=== PATIENT | female | born 1960 | race Hispanic/Latino ===

== ENCOUNTER 2018-07-28 00:32 | Emergency (ER) | payer MEDICARE ==
[~2018-07-28 00:32] MED LIST: ACET-2743 PO; AEC81 PO; CARV6.25 PO; CYCL30DR OU; ERGO500014 PO; FAMO40TA7 PO; FERS325 PO; FLUO-126 PO; FLUT16H NASAL; HYDR200T4 PO; IBUP-2070 PO; ISOS30TA6 PO; LEVO200T10 PO; LEVO75 PO; LOSA1TAB54 PO; NABU750T2 PO; NITR0.4T50 SL; RANO500T3 PO; TOPI50TA24 PO
[2018-07-28 01:05] LABS: APPEARANCE,URINE Clear (CLEAR); BASOPHILS % (AUTO) 0.7 % (0.0-5.0); BILIRUBIN,URINE Negative (NEGATIVE); COLOR,URINE Yellow (YELLOW); EOSINOPHILS % (AUTO) 2.4 % (0.0-8.0); GLUCOSE, URINE (UA) Negative (NEGATIVE); HEMATOCRIT 39.6 % (36-48); KETONES,URINE Negative (NEGATIVE); LEUKOCYTE ESTERASE ,URINE Negative (NEGATIVE); LYMPHOCYTES % (AUTO) 18.8 % (21.0-51.0); MEAN CORPUSCULAR HEMOGLOBIN 30.9 pg (27.0-33.0); MEAN CORPUSCULAR VOLUME 90.7 fL (79-99); MONOCYTES % (AUTO) 5.3 % (3.0-13.0); NEUTROPHILS % (AUTO) 72.8 % (40.0-77.0); NITRATE,URINE Negative (NEGATIVE); OCCULT BLOOD,URINE Negative (NEGATIVE); PH,URINE 5.5 (5.0-8.0); PLATELET COUNT (AUTO) 173 K/uL (130-400); PROTEIN,URINE Negative (NEGATIVE); RED BLOOD CELL COUNT(AUTO) 4.36 MIL/uL (4.00-5.50); RED CELL DISTRIBUTION WIDTH 14.2 % (11.0-15.5); WHITE BLOOD COUNT (AUTO) 6.9 K/uL (4.8-10.8)
[2018-07-28 01:16] LABS: CREATININE 0.6 mg/dL (0.5-1.5); POTASSIUM 4.1 mmol/L (3.5-5.1)
[2018-07-28 01:23] LABS: ALBUMIN 3.7 g/dL (3.5-5.0); BILIRUBIN,TOTAL 0.5 mg/dL (0.2-1.0); TOTAL PROTEIN, SERUM 7.8 g/dL (6.0-8.3)
[2018-07-28 01:30] LABS: CREATINE KINASE, TOTAL 197 U/L (21-232); MYOGLOBIN 50 ng/mL (10-92); TROPONIN I < 0.04 ng/mL (0.00-0.06)
[2018-07-28] MEDS ORDERED: LIDOCAINE HCL 2% VISCOUS 15 ML UDCUP ONE (01:35)
[2018-07-28] MEDS ORDERED: MAGNESIUM HYDROXIDE 30 ML/UDCUP ONE (01:35)
[2018-07-28] MEDS ORDERED: DOCUSATE SODIUM 100 MG CAP PO ONE (02:17)
[2018-07-28] MEDS ORDERED: HYOSCYAMINE SULFATE 0.125 MG TAB.SUBL SL ONE (02:17)
== END 2018-07-28 02:41 | disposition home or self-care (01) ==
LOC: EDH 00:32
DX: K59.00 Constipation, unspecified (principal); R10.13 Epigastric pain; I10 Essential (primary) hypertension; M19.90 Unspecified osteoarthritis, unspecified site; E07.9 Disorder of thyroid, unspecified; Z90.49 Acquired absence of other specified parts of digestive tract; Z98.890 Other specified postprocedural states
CPT/HCPCS: 36415; 71045; 74176; 80053; 81003; 82150; 82550; 83690; 83874; 84484; 85025; 93005

== ENCOUNTER → 2018-08-11 | Outpatient (CLI) | payer MEDICARE | END | disposition home or self-care (01) | LOC: SHCH 12:44 | PROVIDERS: ATTEND Internal Medicine Cardiovascular Disease | DX: I87.2 Venous insufficiency (chronic) (peripheral) (principal); I73.9 Peripheral vascular disease, unspecified | CPT/HCPCS: 93970 ==

== ENCOUNTER → 2019-11-25 | Outpatient (CLI) | payer MEDICARE ==
[~2019-11-25] MED LIST changes: -FLUO-126 PO; +FLUO20CA34 PO
== END | disposition home or self-care (01) ==
LOC: SHCH 12:32
PROVIDERS: ATTEND Internal Medicine Cardiovascular Disease
DX: I20.9 Angina pectoris, unspecified (principal); R06.09 Other forms of dyspnea; R07.9 Chest pain, unspecified; R94.31 Abnormal electrocardiogram [ECG] [EKG]
CPT/HCPCS: 93306; 93356

== ENCOUNTER 2020-10-31 06:46 | Day surgery (SDC) | payer OTHER, MEDICARE ==
[2020-10-29 08:55] VITALS: BP 153/57
[2020-10-29 10:37] LABS: BASOPHILS % (AUTO) 0.5 % (0.0-5.0); EOSINOPHILS % (AUTO) 2.7 % (0.0-8.0); HEMATOCRIT 34.5 % (36-48); LYMPHOCYTES % (AUTO) 27.1 % (21.0-51.0); MEAN CORPUSCULAR HEMOGLOBIN 26.1 pg (27.0-33.0); MEAN CORPUSCULAR HGB CONC 30.7 g/dL (32.0-36.0); MONOCYTES % (AUTO) 5.9 % (3.0-13.0); NEUTROPHILS % (AUTO) 63.6 % (40.0-77.0); PLATELET COUNT (AUTO) 200 K/uL (130-400); RED BLOOD CELL COUNT(AUTO) 4.06 MIL/uL (4.00-5.50); RED CELL DISTRIBUTION WIDTH 14.5 % (11.0-15.5); WHITE BLOOD COUNT (AUTO) 4.4 K/uL (4.8-10.8)
[2020-10-29 10:42] LABS: APPEARANCE,URINE Clear (CLEAR); BILIRUBIN,URINE Negative (NEGATIVE); COLOR,URINE Yellow (YELLOW); GLUCOSE, URINE (UA) Negative (NEGATIVE); KETONES,URINE Negative (NEGATIVE); LEUKOCYTE ESTERASE ,URINE Negative (NEGATIVE); NITRATE,URINE Negative (NEGATIVE); OCCULT BLOOD,URINE Negative (NEGATIVE); PROTEIN,URINE Negative (NEGATIVE)
[2020-10-29 10:46] LABS: CREATININE 0.9 mg/dL (0.5-1.5); POTASSIUM 4.3 mmol/L (3.5-5.1)
[2020-10-29 10:49] LABS: INR 0.96 (0.85-1.15); PROTHROMBIN TIME 10.3 SEC (9.6-11.6)
[2020-10-29 10:50] LABS: PARTIAL THROMBOPLASTIN TIME 26.2 SEC (26.3-35.5)
[2020-10-31] VITALS (10 sets, daily range): BP systolic 105–134; BP diastolic 47–61
[~2020-10-31] VITALS: Ht 152.4 cm; Wt 94.3 kg
[~2020-10-31 06:46] MED LIST changes: +ATOR10TA69 PO; +BACL10TA PO; +CARV12.511 PO; -CARV6.25 PO; +CLON0.5T4 PO; +DICL2100G TP; -ERGO500014 PO; -FAMO40TA7 PO; -FLUO20CA34 PO; +FLUO20CA35 PO; +FURO20TA4 PO; -IBUP-2070 PO; -ISOS30TA6 PO; +ISOS60TA4 PO; +METF-446 PO; +NABU-138 PO; -NABU750T2 PO; +RANO10003 PO; -RANO500T3 PO
[2020-10-31] MEDS ORDERED: SODIUM CHLORIDE 0.9% 1000ML 1,000 ML IV ONE (07:51)
[2020-10-31] MEDS ORDERED: NITROGLYCERIN 2 MG/VIAL VIAL IV ONE (08:26)
[2020-10-31] MEDS ORDERED: IOHEXOL 350 MG/ML 100ML INFUS..BTL IV ONE (08:26)
[2020-10-31] MEDS ORDERED: LIDOCAINE HCL 2% 20ML ONE (08:26)
[2020-10-31] MEDS ORDERED: IOHEXOL-350 50ML VIAL IV ONE ×2 (08:26→09:35)
[2020-10-31] MEDS ORDERED: BIVALIRUDIN 250 MG/VIAL IV ONE (08:26)
[2020-10-31] MEDS ORDERED: MIDAZOLAM HCL 1 MG/ML 2ML VIAL ONE (08:44)
[2020-10-31] MEDS ORDERED: FENTANYL CITRATE PF 50 MCG/1 ML 2ML VIAL ONE (08:44)
[2020-10-31] MEDS ORDERED: GLUCAGON 1MG KIT 1 MG ML IM PRN (10:00)
[2020-10-31] MEDS ORDERED: DEXTROSE 50%-WATER 50 ML DISP.SYRIN IV PRN (10:00)
[2020-10-31] MEDS ORDERED: HYDRALAZINE HCL 20 MG/ML VIAL IV PRN (10:00)
[2020-10-31] MEDS ORDERED: INSULIN HUMULIN R 100 UNIT/ML 3ML SQ SCH (11:30)
== END 2020-10-31 15:00 | disposition home or self-care (01) ==
LOC: DAH 06:46
PROVIDERS: ATTEND Internal Medicine Cardiovascular Disease
DX: I20.9 Angina pectoris, unspecified (principal); I10 Essential (primary) hypertension; E11.9 Type 2 diabetes mellitus without complications; E78.5 Hyperlipidemia, unspecified; M06.9 Rheumatoid arthritis, unspecified; I87.2 Venous insufficiency (chronic) (peripheral); Z79.899 Other long term (current) drug therapy; Z79.84 Long term (current) use of oral hypoglycemic drugs; Z79.82 Long term (current) use of aspirin; Z79.01 Long term (current) use of anticoagulants; Z90.710 Acquired absence of both cervix and uterus; Z90.49 Acquired absence of other specified parts of digestive tract; Z90.89 Acquired absence of other organs; Z98.890 Other specified postprocedural states; Z98.891 History of uterine scar from previous surgery; Z82.49 Family history of ischemic heart disease and other diseases of the circulatory system; Z83.3 Family history of diabetes mellitus
CPT/HCPCS: 36415; 71045; 80048; 81003; 82948 ×2; 85025; 85610; 85730; 93005; 93458; A4215; A4216; A4221; A4222; A4223 ×3; A4606; A4663; C1760; C1894 ×2; J1644; J2250; J3010; J3490 ×2; J7030; Q9965; Q9967 ×2; 99156; 99157; J0583

== ENCOUNTER → 2021-09-23 | Outpatient (CLI) | payer OTHER, MEDICARE ==
[~2021-09-23] MED LIST changes: -FLUO20CA35 PO; +FLUO20CA36 PO; -ISOS60TA4 PO; +ISOS60TA77 PO; -LEVO75 PO; -NABU-138 PO; +NABU-143 PO
== END | disposition home or self-care (01) ==
LOC: RAH 10:06
PROVIDERS: ATTEND Nurse Practitioner Family
DX: M79.642 Pain in left hand (principal); M79.622 Pain in left upper arm
CPT/HCPCS: 73080; 73110; 73130

== ENCOUNTER → 2022-01-06 | Outpatient (CLI) | payer OTHER, MEDICARE | END | disposition home or self-care (01) | LOC: RAH 14:46 | PROVIDERS: ATTEND Internal Medicine | DX: G43.909 Migraine, unspecified, not intractable, without status migrainosus (principal) | CPT/HCPCS: 70450 ==

== ENCOUNTER → 2022-01-22 | Outpatient (CLI) | payer OTHER, MEDICARE | END | disposition home or self-care (01) | LOC: RAH 10:22 | PROVIDERS: ATTEND Internal Medicine | DX: M25.551 Pain in right hip (principal) | CPT/HCPCS: 73502 ==

== ENCOUNTER → 2022-08-13 | Outpatient (CLI) | payer OTHER, MEDICARE | END | disposition home or self-care (01) | LOC: RAH 14:32 | PROVIDERS: ATTEND Internal Medicine Hematology & Oncology | DX: G47.00 Insomnia, unspecified (principal); I82.403 Acute embolism and thrombosis of unspecified deep veins of lower extremity, bilateral; I73.9 Peripheral vascular disease, unspecified; D50.9 Iron deficiency anemia, unspecified; I65.23 Occlusion and stenosis of bilateral carotid arteries; I25.10 Atherosclerotic heart disease of native coronary artery without angina pectoris; M71.22 Synovial cyst of popliteal space [Baker], left knee | CPT/HCPCS: 93925; 93970 ==

== ENCOUNTER → 2022-08-30 | Outpatient (CLI) | payer OTHER, MEDICARE | END | disposition home or self-care (01) | LOC: SHCH 15:11 | PROVIDERS: ATTEND Internal Medicine Cardiovascular Disease | DX: I87.2 Venous insufficiency (chronic) (peripheral) (principal) | CPT/HCPCS: 93970 ==

== ENCOUNTER → 2022-09-04 | Outpatient (CLI) | payer OTHER, MEDICARE | END | disposition home or self-care (01) | LOC: RAH 10:00 | PROVIDERS: ATTEND Internal Medicine | DX: R93.89 Abnormal findings on diagnostic imaging of other specified body structures (principal) | CPT/HCPCS: 71046 ==

== ENCOUNTER 2022-11-25 11:46 | Emergency (ER) | payer OTHER, MEDICARE ==
[~2022-11-25] VITALS: Ht 154.9 cm; Wt 92.1 kg
[~2022-11-25 11:46] MED LIST changes: -BACL10TA PO; +BIMA2.5D4 OP; +CETI10TA57 PO; +CHOL2400 MC; -CLON0.5T4 PO; +CYAN500T9 PO; -FERS325 PO; +FOLI1 PO; -ISOS60TA77 PO; +LEVO50CA4 PO; +METH25VI67 SQ; -NABU-143 PO; +OMEP20TA20 PO; +SUCR1TAB2 PO; +TEMA15CA PO; +TIZA4CAP8 PO; +TRAM50TA4 PO
[2022-11-25 12:48] LABS: BASOPHILS % (AUTO) 0.6 % (0.0-5.0); HEMATOCRIT 40.5 % (36-48); LYMPHOCYTES % (AUTO) 12.8 % (21.0-51.0); MEAN CORPUSCULAR HEMOGLOBIN 31.1 pg (27.0-33.0); MEAN CORPUSCULAR HGB CONC 33.6 g/dL (32.0-36.0); MEAN CORPUSCULAR VOLUME 92.7 fL (79-99); MONOCYTES % (AUTO) 1.6 % (3.0-13.0); NEUTROPHILS % (AUTO) 83.2 % (40.0-77.0); PLATELET COUNT (AUTO) 169 K/uL (130-400); RED BLOOD CELL COUNT(AUTO) 4.37 MIL/uL (4.00-5.50); WHITE BLOOD COUNT (AUTO) 5.1 K/uL (4.8-10.8)
[2022-11-25 12:55] LABS: APPEARANCE,URINE CLEAR (CLEAR); BILIRUBIN,URINE NEGATIVE (NEGATIVE); COLOR,URINE COLORLESS (YELLOW); GLUCOSE, URINE (UA) 30 mg/dL (NEGATIVE); KETONES,URINE NEGATIVE (NEGATIVE); LEUKOCYTE ESTERASE ,URINE NEGATIVE Leu/uL (NEGATIVE); NITRATE,URINE NEGATIVE (NEGATIVE); OCCULT BLOOD,URINE NEGATIVE (NEGATIVE); PROTEIN,URINE NEGATIVE (NEGATIVE); UROBILINOGEN,URINE 0.2 mg/dL (0.2-1.0)
[2022-11-25 13:10] LABS: BACTERIA,URINE RARE /HPF (None Seen); MUCUS,URINE RARE LPF (None Seen); RBC,URINE 0-1 /HPF (0-1); SQUAMOUS EPITHELIAL CELL,UR RARE /HPF (0-2); WBC,URINE 0-1 /HPF (0-1)
[2022-11-25 13:12] LABS: CREATININE 0.5 mg/dL (0.5-1.5); POTASSIUM 3.4 mmol/L (3.5-5.1)
[2022-11-25 13:16] LABS: ALBUMIN 3.9 g/dL (3.5-5.0); TOTAL PROTEIN, SERUM 7.6 g/dL (6.0-8.3)
[2022-11-25 17:03] VITALS: BP 136/76
== END 2022-11-25 18:03 | disposition home or self-care (01) ==
LOC: EDH 11:46
DX: M25.512 Pain in left shoulder (principal); G45.4 Transient global amnesia; E11.9 Type 2 diabetes mellitus without complications; I10 Essential (primary) hypertension; M19.90 Unspecified osteoarthritis, unspecified site; Z79.82 Long term (current) use of aspirin; Z79.899 Other long term (current) drug therapy; Z79.84 Long term (current) use of oral hypoglycemic drugs; Z90.49 Acquired absence of other specified parts of digestive tract; Z98.890 Other specified postprocedural states
CPT/HCPCS: 36415; 70450; 73030; 80053; 81001; 84484; 85025; 93005

== ENCOUNTER → 2023-11-16 | Outpatient (CLI) | payer OTHER, MEDICARE ==
[~2023-11-16] MED LIST changes: -HYDR200T4 PO; +HYDR200T75 PO; +TOPI-97 PO; -TOPI50TA24 PO
== END | disposition home or self-care (01) ==
LOC: RAH 11:43
PROVIDERS: ATTEND Nurse Practitioner Family
DX: R07.81 Pleurodynia (principal); M19.09 Primary osteoarthritis, other specified site; R10.11 Right upper quadrant pain
CPT/HCPCS: 71100

== ENCOUNTER → 2023-11-23 | Outpatient (CLI) | payer OTHER, MEDICARE | END | disposition home or self-care (01) | LOC: RAH 07:51 | PROVIDERS: ATTEND Internal Medicine | DX: K76.0 Fatty (change of) liver, not elsewhere classified (principal); R07.81 Pleurodynia; R10.11 Right upper quadrant pain; Z90.49 Acquired absence of other specified parts of digestive tract | CPT/HCPCS: 76705 ==

== ENCOUNTER → 2023-11-30 | Outpatient (CLI) | payer OTHER, MEDICARE ==
[~2023-11-30] MED LIST changes: +REGADENOSON 0.4 MG/5 ML PF SYG IVP ONE
== END | disposition home or self-care (01) ==
LOC: SHCH 07:40
PROVIDERS: ATTEND Internal Medicine Cardiovascular Disease
DX: I25.119 Atherosclerotic heart disease of native coronary artery with unspecified angina pectoris (principal); R07.9 Chest pain, unspecified
CPT/HCPCS: 78452; 96374; 93017; J2785; A9500 ×2

== ENCOUNTER → 2023-12-01 | Outpatient (CLI) | payer OTHER, MEDICARE ==
[~2023-12-01] MED LIST changes: -REGADENOSON 0.4 MG/5 ML PF SYG IVP ONE
== END | disposition home or self-care (01) ==
LOC: SHCH 08:02
PROVIDERS: ATTEND Internal Medicine Cardiovascular Disease
DX: R07.9 Chest pain, unspecified (principal); I20.9 Angina pectoris, unspecified; E78.5 Hyperlipidemia, unspecified; E11.9 Type 2 diabetes mellitus without complications
CPT/HCPCS: 93306

== ENCOUNTER → 2023-12-28 | Outpatient (CLI) | payer OTHER, MEDICARE | END | disposition home or self-care (01) | LOC: RAH 10:01 | PROVIDERS: ATTEND Internal Medicine | DX: N95.9 Unspecified menopausal and perimenopausal disorder (principal) | CPT/HCPCS: 77080 ==

== ENCOUNTER → 2024-02-16 | Outpatient (CLI) | payer OTHER, MEDICARE | END | disposition home or self-care (01) | LOC: RAH 09:27 | PROVIDERS: ATTEND Internal Medicine | DX: M19.031 Primary osteoarthritis, right wrist (principal); M19.011 Primary osteoarthritis, right shoulder; M47.812 Spondylosis without myelopathy or radiculopathy, cervical region; M48.02 Spinal stenosis, cervical region; M25.511 Pain in right shoulder; M25.531 Pain in right wrist; M54.2 Cervicalgia | CPT/HCPCS: 72040; 73030; 73090; 73100 ==

== ENCOUNTER 2024-09-19 02:16 | Emergency (ER) | payer OTHER, MEDICARE ==
[~2024-09-19] VITALS: Ht 154.9 cm; Wt 93.9 kg
[~2024-09-19 02:16] MED LIST changes: +FLUO-418 PO; -FLUO20CA36 PO
--- NOTE | 2024-09-19 02:51 | ERN ---
ED Note History of Present Illness Stated Complaint: BACK PAIN Chief Complaint: Back Pain-No Injury Time Seen by MD: 02:23 Dictation: This is a 64-year-old female presented to the emergency room with complaints of back pain. She states that the pain is along the spine and she gets some relief with the Tylenol Arthritis. No bladder or bowel incontinence. No history of any falls She has a history of chronic back pain and has had previous sacroiliac joint fusion. This particular back pain is more in the right psoas muscle area which is tender per her description. She also has a another pain that radiates from there like electric shock along the lower aspect towards the gluteal area. At baseline she uses a cane for ambulation. Her main complaint today is worsening pain unable to sleep No fever chills rigors Temperature 97.8 pulse 82 respirations 20 blood pressure 166/89 with a pulse oximetry of 98% Her chronic medical problems include anemia arthritis diabetes mellitus hypertension insomnia and hypothyroidism. Allergies: Coded Allergies: No Known Allergies (Verified Allergy, 05/26/13) Home Meds Active Scripts Tramadol Hcl (Tramadol HCl) 50 Mg Tablet, 50 MG PO QID for pain, #16 TAB 0 Refills Prov:AI MACHUCA MD 09/19/24 Prednisone (Prednisone) 20 Mg Tablet, 1 TAB PO AD for 6 Days, #14 TAB 0 Refills TAKE 1 TAB BY MOUTH THREE TIMES PER DAY X3 DAYS, THEN TAKE 1 TAB BY MOUTH TWICE A DAY X2 DAYS, THEN TAKE 1 TAB BY MOUTH ONCE A DAY X1 DAY. Prov:AI MACHUCA MD 09/19/24 Cyclobenzaprine HCl (Cyclobenzaprine HCl) 10 Mg Tablet, 1 TAB PO HS for muscle spasms for 30 Days, #30 TAB 0 Refills Prov:AI MACHUCA MD 09/19/24 Sucralfate (Sucralfate) 1 Gm Tablet, 1 GM PO DAILY, #30 TAB 0 Refills Prov:LESLY ANDERSON MD 09/29/22 Reported Medications Levothyroxine Sodium (Levothyroxine) 50 Mcg Capsule, 50 MCG PO Q24H, CAP 09/28/22 Folic Acid (Folvite) 1 Mg Tab, 1 MG PO DAILY, TAB 09/28/22 Methotrexate Sodium/Pf (Methotrexate 50 mg/2 ml Vial) 25 Mg/1 Ml Vial, 15 MG SQ QWEEK, VIAL 09/28/22 Cetirizine HCl (Cetirizine HCl) 10 Mg Tablet, 10 MG PO DAILY, TAB 09/28/22 Omeprazole (Omeprazole) 20 Mg Tablet.dr, 20 MG PO DAILY, TAB 09/28/22 Tizanidine HCl (Tizanidine HCl) 4 Mg Capsule, 4 MG PO BID, CAP 09/28/22 Cyanocobalamin (Vitamin B-12) 500 Mcg Tab, 500 MCG PO DAILY, TAB 09/28/22 Tramadol Hcl (Tramadol HCl) 50 Mg Tablet, 50 MG PO Q6HPRN PRN for PAIN, TAB 09/28/22 Bimatoprost (Lumigan) 2.5 Ml Drops, 2.5 ML OP BID, DROP 09/28/22 Temazepam (Temazepam) 15 Mg Capsule, 15 MG PO HS PRN for INSOMNIA, CAP 09/28/22 Cholecalciferol (Vitamin D3) (Vitamin D3) 2,400 Unit/1 Ml Liquid, 2000 UNIT MC DAILY 09/28/22 Atorvastatin Calcium (Atorvastatin Calcium) 10 Mg Tablet, 10 MG PO DAILY, TAB 10/30/20 Ranolazine (Ranexa) 1,000 Mg Tab.er.12h, 1000 MG PO BID, TAB 10/30/20 Furosemide (Furosemide) 20 Mg Tablet, 20 MG PO AD PRN for SWELLING, TAB 10/30/20 Carvedilol (Carvedilol) 12.5 Mg Tablet, 12.5 MG PO BID, TAB 10/30/20 Diclofenac Sodium (Voltaren 1% Gel [2 gm/Dose]) 1 Appl/2 Gm Gel, 1 APPL TP QIDP PRN for PAIN LEVEL 1 TO 5, GEL 10/30/20 Metformin HCl (Metformin HCl) 1,000 Mg Tablet, 1000 MG PO DAILY, TAB 10/30/20 Aspirin (ASPIRIN 81 MG ECTAB) 81 Mg Ectab, 81 MG PO DAILY, TAB.EC 12/15/16 Fluticasone Propionate (Flonase Nasal [place]) 50 Mcg/[place], 1 PUFF NASAL DAILY, #3 12/15/16 Cyclosporine (Restasis) 1 Each Droperette, 2 DROP OU DAILY, #180 12/15/16 Fluoxetine HCl (Fluoxetine HCl) 20 Mg Capsule, 1 CAP PO DAILY, #30 12/15/16 Losartan/Hydrochlorothiazide (Losartan-Hctz 100-25 mg Tab) 1 Each Tablet, 1 TAB PO DAILY, #30 12/15/16 Levothyroxine Sodium (Levothyroxine Sodium) 200 Mcg Tablet, 1 TAB PO DAILY, #90 12/15/16 Hydroxychloroquine Sulfate (Hydroxychloroquine Sulfate) 200 Mg Tablet, 1 TAB PO DAILY, #60 12/15/16 Topiramate (Topiramate) 50 Mg Tablet, 1.5 TAB PO BID, #60 12/15/16 Acetaminophen (Tylenol Extra Strength) 500 Mg Tablet, 2 TAB PO BID PRN for PAIN LEVEL 1 TO 5, #360 12/15/16 Nitroglycerin (Nitroglycerin) 0.4 Mg Tab.subl, 1 TAB SL AD PRN for CHEST PAIN, #25 1 tablet every 5 minutes for 3 doses as needed for chest pain 12/15/16 Past Medical History Past Medical History: Anemia, Angina, Arthritis, Diabetes-Type II, Hypertension Additional Past Medical Hx: INSOMNIA,THYROID Surgical History: Appendectomy, Cholecystectomy, Surgical History Other: TKR (BILATERAL), TSR (BILATERAL), UTERUS AND 1 OVARY REMOVED, LOWER BACK S[place] Family History: CAD, HTN Social History: Negative, Lives with family History: Not Applicable RN Note Reviewed/Agreed w/PFSH: Yes Review of System Dictation Constitutional: Negative for fever,chills, and weight loss Eyes: Negative for injury, pain,redness, and discharge ENT: Negative for injury,pain or swelling Cardiovascular: Negative for chest pain, palpitations, and edema Respiratory: Negative for shortness of breath, cough, and wheezing, Abdomen/GI: Negative for abdominal pain, nausea, vomiting, diarrhea, and constipation Back: Negative for injury reports chronic back pain which has been worse today : Negative for injury, bleeding and discharge MS/Extremity: Negative for injury and deformity Skin: Negative for rash, and discoloration Neuro: Negative for headache, weakness, numbness, tingling, and seizure Psych: Negative for suicide ideation, homicidal ideation, and hallucinations Initial Vital Sign VS Vital Signs Date Time Temp Pulse Resp B/P (MAP) Pulse Ox O2 Delivery O2 Flow Rate FiO2 09/19/24 02:17 97.9 82 20 166/89 98 Room Air 09/19/24 02:38 0 21 Physical Exam Dictation General: awake, alert, NAD Head/Face: Normocephalic, atraumatic Eyes: PERRL, EOMI, vision at baseline ENT: oral cavity clear, TMs clear, no signs of infection Neck: Trachea midline, supple, no nuchal rigidity Cardiovascular: RRR, normal S1/S2, No MRGs, no JVD Respiratory: CTAB, no respiratory distress, No rales or wheezes Abdomen: Soft, non-tender, non-distended, normal bowel sounds, no guarding or rebound. Tenderness in the right flank area and para spinal area. I did not appreciate any obvious erythema bruising hematoma or deformity. Most of the pain and tenderness are with movement of the body Skin: Warm, dry, normal turgor, no rash MS/Extremity: Pulses equal, no cyanosis, neurovascular intact, FROM Neuro: COAx4, GCS 15, strength 5/5, CN 2-12 intact, normal cerebellar exam, normal gait, Psych: Normal behavior, mood, and affect normal Extremities-trace edema without any palpable cords, Homans sign is negative Results (Laboratory/Radiology) Laboratory/Radiology Laboratory Tests Test 09/19/24 02:46 Urine Color LIGHT-YELLOW (YELLOW) Urine Appearance CLEAR (CLEAR) Urine pH 7.0 (5.0-8.0) Urine Specific [place] 1.020 (1.001-1.031) Urine Protein NEGATIVE mg/dL (NEGATIVE) Urine Glucose (UA) NEGATIVE mg/dL (NEGATIVE) Urine Ketones NEGATIVE mg/dL (NEGATIVE) Urine Occult Blood NEGATIVE (NEGATIVE) Urine Nitrate NEGATIVE (NEGATIVE) Urine Bilirubin NEGATIVE mg/dL (NEGATIVE) Urine Urobilinogen 0.2 mg/dL (0.2-1.0) Urine Leukocyte Esterase NEGATIVE Marko/uL Labs Reviewed?: Yes ED Course ED Course Orders Procedure Category Date Status Time Urinalysis Profile LAB 09/19/24 Complete 02:42 Morphine 2mg Syg PHA 09/19/24 Complete (Morphine 2mg Syg) 03:00 Cyclobenzaprine Hcl PHA 09/19/24 Complete (Cyclobenzaprine Hcl 03:00 Methylprednisolone PHA 09/19/24 Complete Succ 125mg (Solu-Medr 03:00 Morphine 2mg Syg PHA 09/19/24 In Process (Morphine 2mg Syg) 04:30 Morphine 2mg Syg PHA 09/19/24 Transmitted (Morphine 2mg Syg) 04:30 Current Medications Medications (Trade) Dose Ordered Sig/Samantha Route PRN Reason Start Time Stop Time Status Last Admin Dose Admin Cyclobenzaprine HCl (Cyclobenzaprine HCl) 5 mg ONCE ONCE PO 09/19/24 03:00 09/19/24 03:01 DC 09/19/24 03:04 Methylprednisolone Sodium Succinate (Solu-medROL 125MG) 60 mg ONCE ONCE IVP 09/19/24 03:00 09/19/24 03:01 DC 09/19/24 03:04 Morphine Sulfate (morPHINE 2MG SYG) 2 mg ONCE ONCE IVP 09/19/24 03:00 09/19/24 03:01 DC 09/19/24 03:04 Morphine Sulfate (morPHINE 2MG SYG) 2 mg ONCE ONCE IVP 09/19/24 04:30 09/19/24 04:31 Vital Signs Date Time Temp Pulse Resp B/P (MAP) Pulse Ox O2 Delivery O2 Flow Rate FiO2 09/19/24 04:08 98.2 88 18 156/65 99 Room Air* 0 21 09/19/24 02:38 98.1 88 18 166/78 99 Room Air* 0 21 09/19/24 02:17 97.9 82 20 166/89 98 Room Air We will perform diagnostic labs, advanced imaging and administer medications according to the patient's complaint. Once the results are available, will review and personally interpreted the labs to rule out any acute life- threatening emergency the trach require immediate intervention and treatment. I will then re-evaluate the patient after treatment and diagnostic exams have return to determine whether the patient requires any further testing, can safely be discharged home or need further admission to hospital for additional treatment and evaluation. Feels much improved with significant resolution of the symptoms on symptomatic management. I had a long discussion with the patient and family member about likely possibilities of pain and long-term strategies for pain control. They verbalized full understanding. I also discussed the uses adverse effects risks and benefits of tramadol although a week opioid and negative consequences including respiratory arrest especially with morbid obesity. They verbalized full understanding Medical Decision Making MDM MDM: Differential diagnosis: Lumbar radiculopathy, psoas muscle spasm, chronic degenerative arthritis Rationale: Tests considered and ordered secondary to shared decision making include: Previous outside records reviewed: Old ER visits. Risk of complication and/or morbidity or mortality of patient management: None Medications-Per medication reconciliation Need for hospitalization: Patient does not meet criteria for hospitalization. Need for emergency major/minor surgery: No There are no social concerns with this patient. Prescription drug management Prescriptions will include symptomatic care Patient's prior external medical records from other ER visits were reviewed by me as indicated. Prior testing and results from previous visits were reviewed. Prior tests were taken into account with medical decision making and resource utilization, independent historian/historians were used to obtain complete medical history. I independently interpreted the test that were performed, results were reviewed by me and considered findings on radiology if ordered. Medical management and examination interpretation discussions were had by me with other qualified healthcare professionals as indicated for the patient's care. Problem List Problem List: (1) Lumbar paraspinal muscle spasm (2) Chronic back pain (3) Lumbar radiculopathy, chronic DX & DISP Disposition: Discharge Departure Impression: Primary Impression: Lumbar paraspinal muscle spasm Additional Impressions: Chronic back pain, Lumbar radiculopathy, chronic Condition: Stable Scripts Tramadol Hcl (Tramadol HCl) 50 Mg Tablet 50 MG PO QID for pain, #16 TAB 0 Refills Prov: AI MACHUCA MD 09/19/24 Prednisone (Prednisone) 20 Mg Tablet 1 TAB PO AD for 6 Days, #14 TAB 0 Refills TAKE 1 TAB BY MOUTH THREE TIMES PER DAY X3 DAYS, THEN TAKE 1 TAB BY MOUTH TWICE A DAY X2 DAYS, THEN TAKE 1 TAB BY MOUTH ONCE A DAY X1 DAY. Prov: AI MACHUCA MD 09/19/24 Cyclobenzaprine HCl (Cyclobenzaprine HCl) 10 Mg Tablet 1 TAB PO HS for muscle spasms for 30 Days, #30 TAB 0 Refills Prov: AI MACHUCA MD 09/19/24 Additional Instructions: Patient and the caregiver have been informed of all the diagnostic tests and the imaging conducted during the today's visit to the emergency room and has verbalized understanding of the results I have personally reviewed and interpreted all diagnostic exams performed here in the ER today as well as the vital signs documented by the nursing staff. The patient is now being discharged to home and should follow up with the primary care physician or the specialist as directed by the ER staff. Follow-up with primary care provider in 1 to 2 days. Take medications as directed here in the emergency room. Okay to continue home medications unless otherwise discussed during your visit in the emergency room today. Return to your nearest emergency room if symptoms worsen or if there is no improvement. Call 911 if you need immediate assistance. Take Tylenol or Motrin [id number] as needed and if no contraindications are present. Increase oral hydration. A wound culture or urine culture was ordered here in the emergency room department please follow-up with primary care provider and advise them to get repeat ports from our facility. If you had any Farhan wrap/splints that were applied here, please do not remove them until you see your primary care or specialty. Referra to neurosurgeon chronic pain management. Referrals: ARASELI ALBERTS MD (PCP) AI MACHUCA MD Sep 19, 2024 02:51
[2024-09-19 03:03] LABS: ADD UA MICROSCOPIC NO; APPEARANCE,URINE CLEAR (CLEAR); BILIRUBIN,URINE NEGATIVE (NEGATIVE); COLOR,URINE LIGHT-YELLOW (YELLOW); GLUCOSE, URINE (UA) NEGATIVE (NEGATIVE); KETONES,URINE NEGATIVE (NEGATIVE); LEUKOCYTE ESTERASE ,URINE NEGATIVE Leu/uL (NEGATIVE); NITRATE,URINE NEGATIVE (NEGATIVE); OCCULT BLOOD,URINE NEGATIVE (NEGATIVE); PROTEIN,URINE NEGATIVE (NEGATIVE); UROBILINOGEN,URINE 0.2 mg/dL (0.2-1.0)
[2024-09-19] MEDS: morPHINE 2 MG SYG IVP ONE ×3 (03:04→04:28)
[2024-09-19] MEDS: CYCLOBENZAPRINE HCL 10 MG TABLET PO ONE (03:04)
[2024-09-19] MEDS: Solu-medROL 125MG VIAL IVP ONE (03:04)
[2024-09-19] MEDS ORDERED: CYCL-309 PO (03:12)
[2024-09-19] MEDS ORDERED: TRAM50TA4 PO (03:12)
[2024-09-19] MEDS ORDERED: PRED20TA3 PO (03:12)
[2024-09-19 04:08] VITALS: BP 156/65; PULSE 88; RESP 18; TEMP 98.2; O2SAT 99
== END 2024-09-19 04:20 | disposition home or self-care (01) ==
LOC: EDH 02:16
DX: M62.830 Muscle spasm of back (principal); G89.29 Other chronic pain; M54.9 Dorsalgia, unspecified; M54.16 Radiculopathy, lumbar region; E11.9 Type 2 diabetes mellitus without complications; I10 Essential (primary) hypertension; Z79.621 Long term (current) use of calcineurin inhibitor; Z79.82 Long term (current) use of aspirin; Z79.84 Long term (current) use of oral hypoglycemic drugs; Z79.890 Hormone replacement therapy; Z79.899 Other long term (current) drug therapy; Z90.49 Acquired absence of other specified parts of digestive tract; Z90.721 Acquired absence of ovaries, unilateral; Z98.890 Other specified postprocedural states
CPT/HCPCS: 99284; 96374; 96375; 81003; 96376; J2270 ×2; J2919

== ENCOUNTER → 2025-05-01 | Outpatient (CLI) | payer OTHER, MEDICAID ==
[~2025-05-01] MED LIST changes: +CYCL-309 PO; -LEVO50CA4 PO; +LEVO50CA5 PO; +PRED20TA3 PO
--- NOTE | 2025-05-02 14:19 | HMCIMG ---
EXAM: MR Lumbar Spine Without Intravenous Contrast. CLINICAL HISTORY: Pain. TECHNIQUE: Magnetic resonance images of the lumbar spine in multiple planes. CONTRAST: None. COMPARISON: None. FINDINGS: For this examination, spinal levels were labeled assuming five non-rib bearing, lumbar-type vertebrae with the inferior labeled L5. No acute fracture. Normal lordotic curvature. Moderate levoscoliosis. Normal vertebral body heights. Normal marrow signal of the vertebrae. Moderate lumbar spondylosis with multilevel marginal osteophytes, facet arthropathy, ligamentum flavum hypertrophy, disc desiccation and degenerative disc space reduction, most pronounced at T12-L1. Type II endplate changes at T12-L1 and L4-L5. Grade I degenerative anterolisthesis of L4 over L5. Conus medullaris terminates at the T12-L1 level. No abnormal epidural masses. The surrounding soft tissues are unremarkable. Individual spinal levels are described as follows: T12-L1: 3 mm diffuse disc bulge. Severe right lateral recess and neural foraminal stenosis. No spinal canal stenosis. Right traversing nerve root impingement. L1-L2: 3 mm diffuse disc bulge. Severe right lateral recess and neural foraminal stenosis. No spinal canal stenosis. Right traversing nerve root impingement. L2-L3: 4 mm diffuse disc bulge. Moderate right and severe left lateral recess and neural foraminal stenosis. Mild spinal canal stenosis. Bilateral traversing nerve root impingement. L3-L4: 4 mm diffuse disc bulge. Bilateral ligamentum flavum and facet hypertrophy. Severe bilateral lateral recess and neural foraminal stenosis. Mild spinal canal stenosis. Bilateral traversing and exiting nerve root impingement. L4-L5: 3 mm diffuse disc bulge. Bilateral ligamentum flavum and facet hypertrophy. Moderate right and severe left lateral recess and neural foraminal stenosis. Severe spinal canal stenosis. Bilateral traversing and left exiting nerve root impingement. L5-S1: 3 mm diffuse disc bulge. Bilateral facet hypertrophy. Moderate bilateral lateral recess and neural foraminal stenosis. Mild spinal canal stenosis. Bilateral traversing and exiting nerve root impingement. IMPRESSION: Moderate lumbar spondylosis with multilevel marginal osteophytes, facet arthropathy, ligamentum flavum hypertrophy, disc desiccation and degenerative disc space reduction, most pronounced at T12-L1. Type II endplate changes at T12-L1 and L4-L5. Grade I degenerative anterolisthesis of L4 over L5. Mild levoscoliosis. 3-4 mm diffuse disc bulges from T12-L1 through L5-S1. Severe right lateral recess and neural foraminal stenosis at T12-L1 and L1-L2 with right traversing nerve root impingement. Moderate right and severe left lateral recess and neural foraminal stenosis at L2-L3 with mild spinal canal stenosis and bilateral traversing nerve root impingement. Severe bilateral lateral recess and neural foraminal stenosis at L3-L4 with mild spinal canal stenosis and bilateral nerve root impingement. Moderate right and severe left lateral recess and neural foraminal stenosis at L4-L5 with severe spinal canal stenosis and bilateral nerve root impingement. Moderate bilateral lateral recess and neural foraminal stenosis at L5-S1 with mild spinal canal stenosis and bilateral nerve root impingement. /Ermine
== END | disposition home or self-care (01) ==
LOC: RAH 14:28
PROVIDERS: ATTEND Internal Medicine
DX: M47.26 Other spondylosis with radiculopathy, lumbar region (principal); M47.818 Spondylosis without myelopathy or radiculopathy, sacral and sacrococcygeal region; M51.16 Intervertebral disc disorders with radiculopathy, lumbar region; M51.34 Other intervertebral disc degeneration, thoracic region; M43.16 Spondylolisthesis, lumbar region; M53.3 Sacrococcygeal disorders, not elsewhere classified; M48.07 Spinal stenosis, lumbosacral region; M48.04 Spinal stenosis, thoracic region; M25.78 Osteophyte, vertebrae; M41.86 Other forms of scoliosis, lumbar region
CPT/HCPCS: 72148

== ENCOUNTER → 2025-06-08 | Outpatient (CLI) | payer OTHER, MEDICAID ==
[~2025-06-08] MED LIST changes: +CYAN500T3 PO; -CYAN500T9 PO; +IOHEXOL 350 MG/ML 100ML INFUS..BTL IV ONE
--- NOTE | 2025-06-11 16:03 | CARDIOLOGY ---
RAD REPORT: [facility] CT ANGIO RADIOLOGY REPORT: CORONARY CT ANGIOGRAPHY DATE: Jun 08, 2025 QUALITY: Excellent CLINICAL HISTORY AND INDICATION: [ h/o CAD with distal LAD 50% stenosis ] TECHNIQUE: After obtaining a preliminary aircraft cleaner image, contrast imaging performed on an [employer] [id number] scanner. A dedicated, limited window, coronary imaging protocol was used, with single breath-hold, retrospective ECG gating, and automated arrhythmia rejection. 100 cc of low osmolar contrast agent: Omnipaque 350 was delivered via a 18-gauge IV catheter in the right antecubital fossa, using a power injector and followed by 60 cc of normal saline bolus as a chaser. Collimated images were reformatted at 0.5 mm intervals, and sent to an offline independent workstation for interpretation, using 3D anatomic reconstructions: Curved multiplanar reconstructions, maximum intensity projections, and multiplanar imaging. 10 mg IV metoprolol was administered prior to scanning. 0.4 mg SL nitroglycerin was given. CORONARY ARTERY DESCRIPTIONS: The SA artery arises from separate ostial off the right aortic cusp separate from the RCA ostia. Left main coronary artery: Normal caliber vessel that bifurcates into the LAD and LCx. No stenosis. Left anterior descending coronary artery: Normal caliber vessel and gives rise to diagonal and septal branches. No stenosis. Left circumflex coronary artery: Normal caliber, nondominant and gives rise to two OM branches. No stenosis. Right coronary artery: Large, dominant vessel giving rise to the PL and PDA branches. Due to motion artifact of the RCA due to ectopy, this vessel is not able to be evaluated for luminal stenosis. Thoracic Aorta: Normal diameter. Addis Saldivar MD [facility] ADDIS SALDIVAR MD Jun 11, 2025 16:03
== END | disposition home or self-care (01) ==
LOC: RAH 09:06
PROVIDERS: ATTEND Internal Medicine Cardiovascular Disease
DX: I25.118 Atherosclerotic heart disease of native coronary artery with other forms of angina pectoris (principal)
CPT/HCPCS: 75574; J3490; Q9967

== ENCOUNTER 2025-09-19 10:51 | Emergency (ER) | payer OTHER, MEDICAID ==
[~2025-09-19] VITALS: Ht 154.9 cm; Wt 86.6 kg
[~2025-09-19 10:51] MED LIST changes: -IOHEXOL 350 MG/ML 100ML INFUS..BTL IV ONE
[2025-09-19] MEDS ORDERED: OFLO5DRO OP (11:27)
--- NOTE | 2025-09-19 11:28 | ERN ---
ED Note History of Present Illness Stated Complaint: EAR PAIN Chief Complaint: Earache Time Seen by MD: 10:53 Time Seen by Midlevel: 11:00 Dictation: 65-year-old female coming in with complaints of right ear pain onset today. Patient states she coughed, felt itching to the right ear, she put her finger in her ear and when she pulled it out she is a little bit of blood. Patient states she already has a an ENT that she sees for her left ear problem. Patient states she has not MRI pending on the 19 of October. Allergies: Coded Allergies: No Known Allergies (Verified Allergy, 05/26/13) Home Meds Active Scripts Tramadol Hcl (Tramadol HCl) 50 Mg Tablet, 50 MG PO QID for pain, #16 TAB 0 Refills Prov:AI MACHUCA MD 09/19/24 Prednisone (Prednisone) 20 Mg Tablet, 1 TAB PO AD for 6 Days, #14 TAB 0 Refills TAKE 1 TAB BY MOUTH THREE TIMES PER DAY X3 DAYS, THEN TAKE 1 TAB BY MOUTH TWICE A DAY X2 DAYS, THEN TAKE 1 TAB BY MOUTH ONCE A DAY X1 DAY. Prov:AI MACHUCA MD 09/19/24 Cyclobenzaprine HCl (Cyclobenzaprine HCl) 10 Mg Tablet, 1 TAB PO HS for muscle spasms for 30 Days, #30 TAB 0 Refills Prov:AI MACHUCA MD 09/19/24 Sucralfate (Sucralfate) 1 Gm Tablet, 1 GM PO DAILY, #30 TAB 0 Refills Prov:LESLY ANDERSON MD 09/29/22 Reported Medications Levothyroxine Sodium (Levothyroxine) 50 Mcg Capsule, 50 MCG PO Q24H, CAP 09/28/22 Folic Acid (Folvite) 1 Mg Tab, 1 MG PO DAILY, TAB 09/28/22 Methotrexate Sodium/Pf (Methotrexate 50 mg/2 ml Vial) 25 Mg/1 Ml Vial, 15 MG SQ QWEEK, VIAL 09/28/22 Cetirizine HCl (Cetirizine HCl) 10 Mg Tablet, 10 MG PO DAILY, TAB 09/28/22 Omeprazole (Omeprazole) 20 Mg Tablet.dr, 20 MG PO DAILY, TAB 09/28/22 Tizanidine HCl (Tizanidine HCl) 4 Mg Capsule, 4 MG PO BID, CAP 09/28/22 Cyanocobalamin (Vitamin B-12) 500 Mcg Tab, 500 MCG PO DAILY, TAB 09/28/22 Tramadol Hcl (Tramadol HCl) 50 Mg Tablet, 50 MG PO Q6HPRN PRN for PAIN, TAB 09/28/22 Bimatoprost (Lumigan) 2.5 Ml Drops, 2.5 ML OP BID, DROP 09/28/22 Temazepam (Temazepam) 15 Mg Capsule, 15 MG PO HS PRN for INSOMNIA, CAP 09/28/22 Cholecalciferol (Vitamin D3) (Vitamin D3) 2,400 Unit/1 Ml Liquid, 2000 UNIT MC DAILY 09/28/22 Atorvastatin Calcium (Atorvastatin Calcium) 10 Mg Tablet, 10 MG PO DAILY, TAB 10/30/20 Ranolazine (Ranexa) 1,000 Mg Tab.er.12h, 1000 MG PO BID, TAB 10/30/20 Furosemide (Furosemide) 20 Mg Tablet, 20 MG PO AD PRN for SWELLING, TAB 10/30/20 Carvedilol (Carvedilol) 12.5 Mg Tablet, 12.5 MG PO BID, TAB 10/30/20 Diclofenac Sodium (Voltaren 1% Gel [2 gm/Dose]) 1 Appl/2 Gm Gel, 1 APPL TP QIDP PRN for PAIN LEVEL 1 TO 5, GEL 10/30/20 Metformin HCl (Metformin HCl) 1,000 Mg Tablet, 1000 MG PO DAILY, TAB 10/30/20 Aspirin (ASPIRIN 81 MG ECTAB) 81 Mg Ectab, 81 MG PO DAILY, TAB.EC 12/15/16 Fluticasone Propionate (Flonase Nasal [place]) 50 Mcg/[place], 1 PUFF NASAL DAILY, #3 12/15/16 Cyclosporine (Restasis) 1 Each Droperette, 2 DROP OU DAILY, #180 12/15/16 Fluoxetine HCl (Fluoxetine HCl) 20 Mg Capsule, 1 CAP PO DAILY, #30 12/15/16 Losartan/Hydrochlorothiazide (Losartan-Hctz 100-25 mg Tab) 1 Each Tablet, 1 TAB PO DAILY, #30 12/15/16 Levothyroxine Sodium (Levothyroxine Sodium) 200 Mcg Tablet, 1 TAB PO DAILY, #90 12/15/16 Hydroxychloroquine Sulfate (Hydroxychloroquine Sulfate) 200 Mg Tablet, 1 TAB PO DAILY, #60 12/15/16 Topiramate (Topiramate) 50 Mg Tablet, 1.5 TAB PO BID, #60 12/15/16 Acetaminophen (Tylenol Extra Strength) 500 Mg Tablet, 2 TAB PO BID PRN for PAIN LEVEL 1 TO 5, #360 12/15/16 Nitroglycerin (Nitroglycerin) 0.4 Mg Tab.subl, 1 TAB SL AD PRN for CHEST PAIN, #25 1 tablet every 5 minutes for 3 doses as needed for chest pain 12/15/16 Past Medical History Past Medical History: Diabetes-Type II, High Cholesterol, Hypertension Additional Past Medical Hx: INSOMNIA,THYROID Surgical History: Appendectomy, Tonsillectomy, Cholecystectomy, Surgical History Other: BILATERAL KNEE AND SHOULDER SX. CARPAL TUNNEL. Family History: CAD, HTN Social History: Negative, Lives with family History: Not Applicable Review of System Dictation Constitutional: Negative for fever,chills, and weight loss Eyes: Negative for injury, pain,redness, and discharge ENT: Right ear pain Cardiovascular: Negative for chest pain, palpitations, and edema Respiratory: Negative for shortness of breath, cough, and wheezing, Abdomen/GI: Negative for abdominal pain, nausea, vomiting, diarrhea, and constipation Back: Negative for injury and pain : Negative for injury, bleeding and discharge MS/Extremity: Negative for injury and deformity Skin: Negative for rash, and discoloration Neuro: Negative for headache, weakness, numbness, tingling, and seizure Psych: Negative for suicide ideation, homicidal ideation, and hallucinations Review of Systems: was completed Initial Vital Sign VS Vital Signs Date Time Temp Pulse Resp B/P (MAP) Pulse Ox O2 Delivery O2 Flow Rate FiO2 09/19/25 10:52 97.9 83 18 142/70 98 Room Air 0 Physical Exam Dictation General: awake, alert, NAD Head/Face: Normocephalic, atraumatic Eyes: PERRL, EOMI, vision at baseline ENT: oral cavity clear, there is blood noted on the bottom of the canal , sludge like, only seen half of the tympanic Neck: Trachea midline, supple, no nuchal rigidity Cardiovascular: RRR, normal S1/S2, No MRGs, no JVD Respiratory: CTAB, no respiratory distress, No rales or wheezes Abdomen: Soft, non-tender, non-distended, normal bowel sounds, no guarding or rebound. Skin: Warm, dry, normal turgor, no rash MS/Extremity: Pulses equal, no cyanosis, neurovascular intact, FROM Neuro: COAx4, GCS 15, strength 5/5, CN 2-12 intact, normal cerebellar exam, normal gait, Psych: Normal behavior, mood, and affect normal ED Course ED Course Orders Procedure Category Date Status Time Ketorolac PHA 09/19/25 In Process Tromethamine 15mg/Ml 11:30 Current Medications Medications (Trade) Dose Ordered Sig/Samantha Route PRN Reason Start Time Stop Time Status Last Admin Dose Admin Ketorolac Tromethamine (toRADol) 15 mg ONCE ONCE IM 09/19/25 11:30 09/19/25 11:31 Vital Signs Date Time Temp Pulse Resp B/P (MAP) Pulse Ox O2 Delivery O2 Flow Rate FiO2 09/19/25 10:52 97.9 83 18 142/70 98 Room Air 0 Medical Decision Making MDM MDM: 65-year-old female coming in with complaints of right ear pain onset today. Patient states she coughed, felt itching to the right ear, she put her finger in her ear and when she pulled it out she is a little bit of blood. Patient states she already has a an ENT that she sees for her left ear problem. Patient states she has not MRI pending on the 19 of October. On physical exam able to visualize partial of wall of the TM, there is bloody sludge, noted at the canal, which isn't PD me from visualizing the entire TM. We will prescribe patient ear drops and have patient go from here to the ENT. Patient states she can have her granddaughter drive her right now after the ER visit to her ENT. Differential diagnosis: Otitis media, tympanic rupture, Rationale: Tests considered and ordered secondary to shared decision making include: Previous outside records reviewed: Old ER visits. Risk of complication and/or morbidity or mortality of patient management: None Medications-Per medication reconciliation Need for hospitalization: Patient does not meet criteria for hospitalization. Need for emergency major/minor surgery: No There are no social concerns with this patient. Prescription drug management Prescriptions will include symptomatic care Patient's prior external medical records from other ER visits were reviewed by me as indicated. Prior testing and results from previous visits were reviewed. Prior tests were taken into account with medical decision making and resource utilization, independent historian/historians were used to obtain complete medical history. I independently interpreted the test that were performed, results were reviewed by me and considered findings on radiology if ordered. Medical management and examination interpretation discussions were had by me with other qualified healthcare professionals as indicated for the patient's care. DX & DISP Disposition: Discharge Departure Impression: Primary Impression: Right ear pain Condition: Stable Scripts Ofloxacin (Ofloxacin) 0.3 % Drops 1 DROP OP QID for 5 Days, #5 ML 0 Refills Prov: MARQUISE DESAI CNP 09/19/25 Additional Instructions: Please go to your ENT for further evaluation. Hospital if you notice any further symptoms or worsening symptoms. Referrals: ARASELI ALBERTS MD (PCP) Time of Disposition: 11:25 I have reviewed the case, and I agree with, Diagnosis and Plan MARQUISE DESAI CNP Sep 19, 2025 11:28
[2025-09-19 11:40] VITALS: BP 141/73; PULSE 80; RESP 18; TEMP 97.9; O2SAT 98
== END 2025-09-19 11:44 | disposition home or self-care (01) ==
LOC: EDH 10:51
DX: H92.01 Otalgia, right ear (principal); E11.9 Type 2 diabetes mellitus without complications; E78.00 Pure hypercholesterolemia, unspecified; I10 Essential (primary) hypertension; Z79.621 Long term (current) use of calcineurin inhibitor; Z79.82 Long term (current) use of aspirin; Z79.84 Long term (current) use of oral hypoglycemic drugs; Z79.890 Hormone replacement therapy; Z79.899 Other long term (current) drug therapy; Z90.49 Acquired absence of other specified parts of digestive tract; Z90.89 Acquired absence of other organs
CPT/HCPCS: 96372; 99283; J1885